=== PATIENT | male | born 1965 | race Caucasian/White ===

== ENCOUNTER → 2017-06-01 | Outpatient (REF) ==
--- NOTE | 2017-06-01 13:43 | REP ---
Lumbar spine seven views of the lateral views with flexion and extension: Comparison is a outside study dated 04/26/2015. Vertebral body heights and alignment are normal and unchanged. There is disc space narrowing and minor osteophytic formation at T11-12 and T12-L1 and L1-2. This is similar appearance to the prior study suggestive of moderate degenerative disc disease. The remainder of the disc spaces are unremarkable. There is no spondylolysis. There is no spondylolisthesis. There is no listhesis on the lateral views with flexion or extension. The pedicles, facets and sacroiliac articulations are unremarkable. Impression: Degenerative disc disease as described. Otherwise, negative lumbar spine. Vascular calcified atheroma is incidentally noted in the aorta. Signed by Wyatt Mcgowan MD 06/01/2017 01:34 P
== END ==
LOC: M RAD 11:58
PROVIDERS: ATTEND Internal Medicine
DX: M51.36 Other intervertebral disc degeneration, lumbar region (principal)

== ENCOUNTER → 2017-10-21 | Outpatient (CLI) | payer BC | LOC: M RAD 15:11 | DX: J32.9 Chronic sinusitis, unspecified (principal) | CPT/HCPCS: 70486 ==

== ENCOUNTER → 2018-07-20 | Outpatient (REF) | payer BC | LOC: M SFHCLERA 12:01 | DX: L28.0 Lichen simplex chronicus (principal) | CPT/HCPCS: 88305 ==

== ENCOUNTER 2019-08-04 07:29 | Day surgery (SDC) | payer BC ==
[~2019-08-04] VITALS: Ht 177.8 cm; Wt 97.1 kg
[~2019-08-04 07:29] MED LIST: DOXY100C PO; IBUP80TA PO; NS 1,000 ML IV ONE
[2019-08-04] MEDS ORDERED: LIDOCAINE 2% INJ 100 MG/5 ML SDV (FOR ANES.) As Ordered ONE (08:08)
[2019-08-04] MEDS ORDERED: PROPOFOL 200 MG/20 ML VIAL As Ordered ONE (08:08)
[2019-08-04 09:26] VITALS: BP 121/63
--- NOTE | 2019-08-04 15:50 | ROOR ---
Patient Name: Kilo Wing Procedure Date: 08/04/2019 8:37 AM Date of : 1965 Age: 54 Room: [facility] Gender: Male Note Status: Finalized Procedure: Colonoscopy Indications: Rectal bleeding Providers: Fredo Courtney Jr, MD Referring MD: Raji Yip MD Requesting Provider: Medicines: Propofol per Anesthesia Complications: No immediate complications. Estimated blood loss: Minimal. Procedure: Pre-Anesthesia Assessment: - Prior to the procedure, a History and Physical was performed, and patient medications and allergies were reviewed. The patient is competent. The risks and benefits of the procedure and the sedation options and risks were discussed with the patient. All questions were answered and informed consent was obtained. Patient identification and proposed procedure were verified by the physician and the nurse in the pre-procedure area and in the procedure room. Mental Status Examination: alert and oriented. Airway Examination: normal oropharyngeal airway and neck mobility. Respiratory Examination: clear to auscultation. CV Examination: normal. ASA Grade Assessment: II - A patient with mild systemic disease. After reviewing the risks and benefits, the patient was deemed in satisfactory condition to undergo the procedure. The anesthesia plan was to use moderate sedation / analgesia (conscious sedation). Immediately prior to administration of medications, the patient was re-assessed for adequacy to receive sedatives. The heart rate, respiratory rate, oxygen saturations, blood pressure, adequacy of pulmonary ventilation, and response to care were monitored throughout the procedure. The physical status of the patient was re-assessed after the procedure. The Colonoscope was introduced through the anus and advanced to the cecum, identified by appendiceal orifice and ileocecal valve. The colonoscopy was performed without difficulty. The patient tolerated the procedure well. The quality of the bowel preparation was adequate. Findings: The recto-sigmoid colon, descending colon, transverse colon, ascending colon, cecum, appendiceal orifice and ileocecal valve appeared normal. A few small-mouthed diverticula were found in the sigmoid colon. Bleeding internal hemorrhoids were found during retroflexion. The hemorrhoids were Grade II (internal hemorrhoids that prolapse but reduce spontaneously) and Grade III (internal hemorrhoids that prolapse but require manual reduction). Four bands were successfully placed. Bleeding had stopped at the end of the procedure. Impression: - The recto-sigmoid colon, descending colon, transverse colon, ascending colon, cecum, appendiceal orifice and ileocecal valve are normal. - Diverticulosis in the sigmoid colon. - Bleeding internal hemorrhoids. - No specimens collected. Recommendation: - Repeat colonoscopy in 10 years for screening purposes. Fredo Courtney MD Fredo Courtney Jr, MD 08/04/2019 9:02:35 AM Electronically signed by Fredo Courtney Jr, MD Number of Addenda: 0 Note Initiated On: 08/04/2019 8:37 AM Estimated Blood Loss: Estimated blood loss was minimal. Estimated blood loss: none.
== END 2019-08-04 10:01 | disposition home or self-care (01) ==
LOC: M OPP 07:29
PROVIDERS: ATTEND Surgery
DX: K64.2 Third degree hemorrhoids (principal); K57.30 Diverticulosis of large intestine without perforation or abscess without bleeding; K62.5 Hemorrhage of anus and rectum; Z91.041 Radiographic dye allergy status; Z85.46 Personal history of malignant neoplasm of prostate

== ENCOUNTER → 2019-10-25 | Outpatient (CLI) | payer BC ==
[~2019-10-25] MED LIST changes: -NS 1,000 ML IV ONE; +READI-CAT 2 As Ordered ONE
--- NOTE | 2019-10-25 10:22 | REP ---
Clinical: History of prostate cancer. Technique: Axial noncontrast images from the lung bases to the pubic symphysis with coronal and sagittal re-formations. Comparison: None. Findings: Lung bases are clear. Visualized heart and pericardium normal. Liver, spleen, pancreas, gallbladder, right adrenal gland and bilateral kidneys are normal for noncontrast evaluation. 3 cm heterogeneous left adrenal mass with possible small fatty component is identified. The enteric system is without obstruction or acute inflammatory process. Normal terminal ileum and appendix are identified in the right lower quadrant. Pelvis demonstrates normal bladder and evidence of prior prostatectomy. Small fat containing left inguinal hernia noted. No ascites. No free air. No adenopathy. Abdominal aorta without aneurysm. Visualized musculoskeletal structures demonstrate age-related degenerative changes without obvious osseous metastatic disease identified. Impression: 1. 3 cm heterogeneous left adrenal mass possibly containing small central fat component. Differential diagnosis includes but is not limited to benign neoplasm such as angiolipoma, complex adenoma as well as malignant lesions including metastatic disease. 2. Otherwise normal noncontrast CT of the abdomen and pelvis. 3. Incidental small fat containing left inguinal hernia. Electronically Signed by Collin Helm MD 10/25/2019 10:14 A
== END ==
LOC: M RAD 07:28
PROVIDERS: ATTEND Urology
DX: C61 Malignant neoplasm of prostate (principal)

== ENCOUNTER → 2019-11-22 | Outpatient (CLI) | payer BC ==
[~2019-11-22] MED LIST changes: -READI-CAT 2 As Ordered ONE
[2019-11-22 11:29] LABS: BLOOD UREA NITROGEN 17 MG/DL (7-18); CALCIUM LEVEL 8.7 MG/DL (8.5-10.1); CARBON DIOXIDE LEVEL 26 MEQ/L (21-32); CHLORIDE LEVEL 108 MEQ/L (98-107); CREATININE FOR GFR 1.17 MG/DL (0.70-1.30); GLOMERULAR FILTRATION RATE > 60.0 (>56); GLUCOSE, FASTING 114 MG/DL (70-100); POTASSIUM SERUM 4.5 MEQ/L (3.5-5.1); PROSTATIC SPECIFIC AG MONITOR < 0.01 NG/ML (< 4.00); SODIUM LEVEL 138 MEQ/L (136-145)
[2019-11-22 11:35] LABS: CORTISOL AM 0.7 UG/DL (4.3-22.4)
== END ==
LOC: M LAB 10:24
PROVIDERS: ATTEND Urology
DX: E27.8 Other specified disorders of adrenal gland (principal)

== ENCOUNTER → 2019-11-24 | Outpatient (CLI) | payer BC ==
[~2019-11-24] MED LIST changes: +ISOVUE-370 76% 100ML VIAL (Q9967) As Ordered ONE
--- NOTE | 2019-11-25 05:17 | REP ---
Clinical: Adrenal mass. Technique: Axial contrast enhanced images from the lung bases to the pubic symphysis using 100 ml Isovue 370 intravenous contrast material with coronal and sagittal re-formations. 15-minute delayed images obtained through the abdomen. Comparison: 10/25/2019. Findings: A complex enhancing left adrenal mass measures approximately 3.0 cm maximal diameter and appears to contain small amounts of bulk fat most compatible with benign adrenal angiomyolipoma. Liver, spleen, pancreas, gallbladder, right adrenal gland and bilateral kidneys are normal. The enteric system is without obstruction or acute inflammatory process. Normal terminal ileum and appendix are identified in the right lower quadrant. Sigmoid diverticula noted without acute diverticulitis. Pelvis demonstrates normal bladder and findings to suggest prior prostate surgery. Abdominal aorta without aneurysm or dissection. No ascites. No free air. No significant adenopathy. Osseous structures demonstrate age-related changes without acute focal abnormality. Incidental sclerotic lesion in the left iliac bone remains stable and likely represent small bone island. Impression: 1. Complex enhancing 3 cm left adrenal lesion containing small amount of bulk fat likely represents benign angiomyolipoma. No significant change from prior noncontrast CT images. 2. Sigmoid diverticula without acute diverticulitis. Electronically Signed by Collin Helm MD 11/25/2019 05:08 A
== END ==
LOC: M RAD 17:28
PROVIDERS: ATTEND Urology
DX: E27.9 Disorder of adrenal gland, unspecified (principal)
CPT/HCPCS: 74177; Q9967

== ENCOUNTER → 2019-12-14 | Outpatient (CLI) | payer BC ==
[~2019-12-14] MED LIST changes: -ISOVUE-370 76% 100ML VIAL (Q9967) As Ordered ONE
== END ==
LOC: M LAB 12-12 12:24
PROVIDERS: ATTEND Urology
DX: C61 Malignant neoplasm of prostate (principal); E27.9 Disorder of adrenal gland, unspecified

== ENCOUNTER → 2020-10-29 | Outpatient (CLI) | payer BC ==
--- NOTE | 2020-10-29 09:04 | REP ---
INDICATION: A. Bilateral hand pain COMPARISON: None. TECHNIQUE: AP, lateral, oblique view of the right and left hand. FINDINGS: There is subtle cortical with subchondral cystic changes involving in the heads of the 2nd and 3rd metacarpal bones bilaterally (right greater than left) with subtle periarticular sclerosis to the base of the adjacent proximal phalanges and minimal joint space narrowing. There is mild arthritic changes at the bilateral 1st carpometacarpal metacarpophalangeal and interphalangeal joints (left greater than right) demonstrating subchondral sclerosis, marginal spurring, and joint space narrowing. Remainder of the bilateral hands appear age-appropriate and normal. IMPRESSION: Arthritic changes involving the 1st digits (left greater than right) and 2nd and 3rd metacarpophalangeal joints (right greater than left). <Electronically signed by Collin Helm > 10/29/20 0901
== END ==
LOC: M SOG 08:33
PROVIDERS: ATTEND Orthopaedic Surgery Sports Medicine
DX: M65.312 Trigger thumb, left thumb (principal); M65.311 Trigger thumb, right thumb; M19.041 Primary osteoarthritis, right hand; M19.042 Primary osteoarthritis, left hand

== ENCOUNTER → 2021-09-09 | Outpatient (CLI) | payer BC, OTHER ==
[~2021-09-09] MED LIST changes: -DOXY100C PO; +DOXY100C3 PO
== END ==
LOC: M RAD 10:38
PROVIDERS: ATTEND Otolaryngology
DX: J32.0 Chronic maxillary sinusitis (principal)

== ENCOUNTER → 2022-07-10 | Outpatient (REF) | LOC: M PLAIMG 12:33 | PROVIDERS: ATTEND Internal Medicine | DX: R06.02 Shortness of breath (principal) ==

== ENCOUNTER → 2023-03-04 | Outpatient (REF) | LOC: M PLAIMG 11:04 | PROVIDERS: ATTEND Internal Medicine | DX: R52 Pain, unspecified (principal); Z87.09 Personal history of other diseases of the respiratory system ==

== ENCOUNTER 2023-09-10 07:33 | Day surgery (SDC) | payer OTHER ==
[~2023-09-10] VITALS: Ht 177.8 cm; Wt 100.2 kg
[~2023-09-10 07:33] MED LIST changes: +ALLO10TA PO; +AMLO1TAB24 PO; +B-12100010 PO; +CALCCAP4 PO; +EZET10TA21 PO; +FAMO20TA PO; +JARD1TAB3 PO; +MELO15TA28 PO; +NS 1,000 ML IV ONE; +PROP20TA72 PO; +VITMTA PO
[2023-09-10] MEDS ORDERED: propofoL 200 MG/20 ML VIAL As Ordered ONE ×2 (08:02→08:48)
[2023-09-10] MEDS ORDERED: LIDOCAINE 2% 100MG/5ML SDV (FOR ANES.) As Ordered ONE (08:02)
[2023-09-10 09:10] VITALS: TEMP 97.6
[2023-09-10 09:23] VITALS: BP 125/64; O2SAT 95
== END 2023-09-10 09:28 | disposition home or self-care (01) ==
LOC: M OPP 07:33
PROVIDERS: ATTEND Surgery
DX: Z12.11 Encounter for screening for malignant neoplasm of colon (principal); Z86.010 Personal history of colon polyps; D12.6 Benign neoplasm of colon, unspecified; K64.2 Third degree hemorrhoids; K57.30 Diverticulosis of large intestine without perforation or abscess without bleeding; Z87.891 Personal history of nicotine dependence; G47.30 Sleep apnea, unspecified; Z99.89 Dependence on other enabling machines and devices; Z79.1 Long term (current) use of non-steroidal anti-inflammatories (NSAID); Z79.84 Long term (current) use of oral hypoglycemic drugs; Z79.899 Other long term (current) drug therapy; Z91.040 Latex allergy status